=== PATIENT | male | born 1950 | race African-American/Black ===

== ENCOUNTER 2017-10-09 20:42 | Emergency (ER) | payer MEDICARE, OTHER ==
[~2017-10-09] VITALS: Ht 185.4 cm; Wt 77.2 kg
[2017-10-09 21:15] VITALS: BP 154/86
== END 2017-10-09 22:47 | disposition left against medical advice (07) ==
LOC: ER 20:42
DX: E11.649 Type 2 diabetes mellitus with hypoglycemia without coma (principal); Z79.4 Long term (current) use of insulin; Z94.1 Heart transplant status
CPT/HCPCS: 82962; 99283